=== PATIENT | male | born 1955 | race Caucasian/White ===

== ENCOUNTER 2018-07-15 05:35 | Day surgery (SDC) | payer OTHER, SELFPAY ==
[2018-07-15] VITALS (8 sets, daily range): BP systolic 91–123; BP diastolic 55–81; PULSE 72–75; RESP 16–18; TEMP 36.5–36.7; O2SAT 93–96
--- NOTE | 2018-07-15 06:50 | OP.ENDO_ITS ---
Patient Name: Adiel Miranda Procedure Date: 07/15/2018 6:09 AM Date of : 1955 Age: 63 Procedure: Colonoscopy Indications: Abdominal pain in the left lower quadrant Patient Profile: Last Colonoscopy: July 2012. Providers: Lion Alfaro MD Referring MD: Deanna Winchester Medicines: Midazolam 4.5 mg IV, Meperidine 100 mg IV Complications: No immediate complications. Procedure: Pre-Anesthesia Assessment: - Prior to the procedure, a History and Physical was performed, and patient medications and allergies were reviewed. The patient's tolerance of previous anesthesia was also reviewed. The risks and benefits of the procedure and the sedation options and risks were discussed with the patient. All questions were answered, and informed consent was obtained. Prior Anticoagulants: The patient has taken aspirin, last dose was day of procedure. ASA Grade Assessment: II - A patient with mild systemic disease. After reviewing the risks and benefits, the patient was deemed in satisfactory condition to undergo the procedure. After I obtained informed consent, the scope was passed under direct vision. Throughout the procedure, the patient's blood pressure, pulse, and oxygen saturations were monitored continuously. The colonoscope was introduced through the anus and advanced to the cecum, identified by appendiceal orifice and ileocecal valve. The colonoscopy was performed without difficulty. The patient tolerated the procedure well. The quality of the bowel preparation was good. Scope In: 6:32:21 AM Scope Withdrawal Time 0 hours 6 minutes 12 seconds Scope Out: 6:40:29 AM Total Procedure Duration Time 0 hours 8 minutes 8 seconds Moderate Sedation: Moderate (conscious) sedation was administered by the endoscopy nurse and supervised by the endoscopist. The patient's oxygen saturation, heart rate, blood pressure and response to care were monitored. Total physician intraservice time was 15 minutes. Findings: The digital rectal exam findings include enlarged prostate. Pertinent negatives include normal sphincter tone. Multiple diverticula were found in the entire colon. There was evidence of a prior end-to-end colo-colonic anastomosis in the distal sigmoid colon. This was patent and was characterized by healthy appearing mucosa. The anastomosis was traversed. Impression: - Enlarged prostate found on digital rectal exam. - Diverticulosis in the entire examined colon. - Patent end-to-end colo-colonic anastomosis, characterized by healthy appearing mucosa. - No specimens collected. Recommendation: - Discharge patient to home. - Resume previous diet. - Continue present medications. - Repeat colonoscopy in 10 years for screening purposes. Procedure Code(s): --- Professional --- 97870, Colonoscopy, flexible; diagnostic, including collection of specimen(s) by brushing or washing, when performed (separate procedure) 09037, 59, Moderate sedation services provided by the same physician or other qualified health animal care giver performing the diagnostic or therapeutic service that the sedation supports, requiring the presence of an independent trained observer to assist in the monitoring of the patient's level of consciousness and physiological status; initial 15 minutes of intraservice time, patient age 5 years or older Diagnosis Code(s): --- Professional --- Z98.0, Intestinal bypass and anastomosis status R10.32, Left lower quadrant pain N40.0, Benign prostatic hyperplasia without lower urinary tract symptoms K57.30, Diverticulosis of large intestine without perforation or abscess without bleeding CPT copyright 2017 [employer]. All rights reserved. The codes documented in this report are preliminary and upon email campaign specialist review may be revised to meet current compliance requirements. MD Lion Chang MD 07/15/2018 6:50:16 AM This report has been signed electronically. Number of Addenda: 0 Note Initiated On: 07/15/2018 6:09 AM
== END 2018-07-15 07:30 | disposition home or self-care (01) ==
LOC: EN 05:36 → AC 05:37
PROVIDERS: Family Provider Internal Medicine; PCP Internal Medicine; Visit Provider Surgery
PROC: 0DJD8ZZ Inspection of Lower Intestinal Tract, Via Natural or Artificial Opening Endoscopic (ICD-10-PCS; CPT 45378; principal; 2018-07-15 06:25)
DX: R10.32 Left lower quadrant pain (principal); I72.3 Aneurysm of iliac artery; N40.0 Benign prostatic hyperplasia without lower urinary tract symptoms; K57.30 Diverticulosis of large intestine without perforation or abscess without bleeding; E11.9 Type 2 diabetes mellitus without complications; E78.5 Hyperlipidemia, unspecified; I25.2 Old myocardial infarction; I25.10 Atherosclerotic heart disease of native coronary artery without angina pectoris; I10 Essential (primary) hypertension; I48.0 Paroxysmal atrial fibrillation; I25.5 Ischemic cardiomyopathy; Z79.82 Long term (current) use of aspirin; Z95.5 Presence of coronary angioplasty implant and graft; Z87.891 Personal history of nicotine dependence; Z98.0 Intestinal bypass and anastomosis status
CPT/HCPCS: 45378; 99152; 99153; J7120

== ENCOUNTER → 2018-08-05 07:49 | Outpatient (CLI) | payer OTHER, SELFPAY ==
[2018-08-05 08:53] LABS: Absolute Lymphocyte Count 2.59 X10^3/ul (0.83-4.51); Absolute Neutrophil Count 8.6 X10^3/uL (2.0-7.7); Basophil# 0.04 X10^3/uL; Basophil% 0.3 % (0-1); Eosinophil# 0.09 X10^3/uL; Eosinophils% 0.7 % (0-5); Hematocrit 47.8 % (40-54); Hemoglobin 16.9 g/dl (13.0-16.5); Lymphocyte # 2.59 X10^3/ul (4.0); Lymphocyte % 21.1 % (19-41); Mean Corp Hgb Conc 35.4 g/gl (32-36); Mean Corpuscular Hgb 31.3 pg (27.0-32.0); Mean Corpuscular Volume 88.5 fL (80-94); Monocyte# 0.88 X10^3/uL; Monocyte% 7.2 % (0-10); Neutrophil % 70.3 % (47-70); Platelet Count 356 K/mm3 (150-450); RBC Distribution Width CV 14.3 % (11.6-14.6); RBC Distribution Width SD 46.9 fl (35.1-43.9); White Blood Count 12.3 K/mm3 (4.4-11.0)
[2018-08-05 08:59] LABS: Anion Gap 9 (5-15); BUN 10 mg/dL (7-18); BUN/Creat Ratio 9.2 RATIO (10-20); Calcium,Total 9.2 mg/dL (8.5-10.1); Chloride 100 mmol/L (98-107); Creatinine, Serum 1.09 mg/dL (0.70-1.30); EST Glomerular Filtration Rate 73 mL/min (>60); Est Glom Filt Rate - Afr Amer 88 mL/min (>60); Glucose 119 mg/dL (74-106); Potassium 4.3 mmol/L (3.5-5.1); Sodium Level 131 mmol/L (136-145)
[2018-08-05 09:18] LABS: POSITIVE COUNT NO; POSITIVE DIFFERENTIAL NO; POSITIVE MORPHOLOGY NO
== END ==
PROVIDERS: Family Provider Internal Medicine; PCP Internal Medicine; Referring Provider Clinical Nurse Specialist; Visit Provider Clinical Nurse Specialist
DX: R10.32 Left lower quadrant pain (principal); Z87.19 Personal history of other diseases of the digestive system
CPT/HCPCS: 80048; 85025

== ENCOUNTER 2020-04-03 10:15 | Emergency (ER) | payer OTHER, SELFPAY ==
[2019-09-07 10:11] VITALS: BMI 31.4
[2020-04-03 10:16] VITALS: BP 187/92; PULSE 81; RESP 18; TEMP 36.9; O2SAT 97; BMI 32.4
--- NOTE | 2020-04-03 10:32 | EKG12_ITS ---
Test Reason : CP Blood Pressure : / mmHG Vent. Rate : 077 BPM Atrial Rate : 077 BPM P-R Int : 176 ms QRS Dur : 130 ms QT Int : 384 ms P-R-T Axes : 062 -66 094 degrees QTc Int : 434 ms Sinus rhythm with Premature atrial complexes Left axis deviation Non-specific intra-ventricular conduction block T wave abnormality, consider lateral ischemia Abnormal ECG Confirmed by WYATT ALRA, YARIEL ([id number]), rewrite editor ZEESHAN CHATTERJEE ([id number]) on 04/04/2020 10:01:47 AM Referred By: EMILY Confirmed By:YARIEL SCHNEIDER MD
--- NOTE | 2020-04-03 10:36 | ED.DCSUM_ITS ---
- ER Visit Summary Date of Service: 04/03/20 Chief Complaint: Chest pain History of Present Illness: The patient is a 65 M who presents with chest pain that is been intermittent over the past 2 weeks. Patient states it is been constant since he woke up this morning. Patient describes as a tightness. Rhina ent states it is across his entire chest. Patient states nothing makes it better or worse. Patient admits to some nausea but denies any vomiting. Patient admits to some lightheadedness. Patient denies any shortness of breath or diaphoresis. Patient admits to an occasional cough. Patient denies any palpitations. Patient states this pain is different from the pain he had when he had his HI. Physical Examination: Vital signs are stable. Patient is afebrile. Patient is in no acute distress. Oral mucosa is pink and moist. Neck is supple. Trachea is midline. There is no JVD. Heart was regular rate and rhythm. Lungs are clear and equal bilaterally. Abdomen is soft. Bowel sounds are normal. There is no tenderness. Cranial nerves II through XII are intact. There are no focal motor or sensory deficits. Extremities are intact. There is no calf tenderness or edema. Test Results: EKG showed a normal sinus rhythm with a rate of 77. There is a nonspecific intraventricular conduction delay. There is some T wave inversion in leads I and aVL. These are unchanged compared to previous EKG dated 04/30/2017. CBC, comprehensive metabolic profile and lipase were obtained and were all within normal limits. Troponin was normal. D-dimer was normal. Portable chest x-ray shows mild cardiomegaly. There is no acute cardiopulmonary process. Emergency Department Course and Treatment: Patient was given aspirin and sublingual nitroglycerin here. Patient states his chest pain improved on reevaluation. Patient states he still has some epigastric pain on reevaluation. Patient was given a GI cocktail. Patient states this improved his pain. Patient wants to go home. Patient was instructed to follow-up with his primary care physician in 3 to 5 days. Patient was instructed to return if worse in any way. Patient understood and was agreeable with the plan. All questions were answered. Disposition: Discharge home Impression: Chest pain This note was generated with [employer] dictation software. It may contain incorrect words, spelling, and punctuation that were not noted in review of the chart prior to signing ED Disposition - Plan for ED Patient: Disposition: Home or Assisted Living Diagnosis: Chest pain Instructions: ED Chest Pain Atypical Unkn Cause Referrals: Deanna Winchester MD [Primary Care Provider] - 3-5 Days
[2020-04-03] MEDS: Ondansetron 4 MG/2 ML Vial IV (10:41)
[2020-04-03] MEDS: 0.9% Normal Saline 1,000 ML 1000 ML IV (10:41)
[2020-04-03] MEDS: Aspirin 81 MG TAB.CHEW 324 MG PO (10:43)
[2020-04-03 10:45] LABS: Absolute Lymphocyte Count 2.08 X10^3/uL (0.83-4.51); Absolute Neutrophil Count 9.1 X10^3/uL (2.0-7.7); Basophil# 0.04 X10^3/uL; Basophil% 0.3 % (0-1); Eosinophil# 0.03 X10^3/uL; Eosinophils% 0.3 % (0-5); Hematocrit 48.5 % (40-54); Hemoglobin 16.2 g/dL (13.0-16.5); Lymphocyte # 2.08 X10^3/ul (4.0); Lymphocyte % 17.4 % (19-41); Mean Corp Hgb Conc 33.4 g/dL (32-36); Mean Corpuscular Hgb 31.4 pg (27.0-32.0); Mean Platelet Vol. 8.7 fl (6.2-12.0); Monocyte# 0.63 X10^3/uL; Monocyte% 5.3 % (0-10); NRBC Flagged by Analyzer 0 % (0-5); Neutrophil # 9.12 X10^3/uL (2.7-7.7); Neutrophil % 76.3 % (47-70); Platelet Count 370 K/mm3 (150-450); RBC Distribution Width CV 13.6 % (11.6-14.6); RBC Distribution Width SD 47.1 fl (35.1-43.9); Red Blood Count 5.16 M/mm3 (4.6-6.2)
[2020-04-03 10:47] VITALS: BP 143/86; PULSE 73
[2020-04-03] MEDS: Nitroglycerin SL (ED/IMG/CATH) 0.4 MG TABLET SUBLINGUAL (10:47)
--- NOTE | 2020-04-03 10:50 | RAD_ITS ---
STUDY: X-RAY CHEST REASON FOR EXAM: Male, 65 years old. Cp x cpl weeks. worse this am. feels nauseated. tightness -- HX SD X2 TECHNIQUE: Single AP portable view of the chest. COMPARISON: Comparison is made with prior examination dated April 27, 2017. FINDINGS: EKG electrodes are seen. Questionable 1.3 cm nodule overlying the right first costochondral junction. Hyperinflation. There is no demonstrated pleural abnormality. Sternal cerclage wires and vascular clips are present from a prior sternotomy and coronary artery bypass graft procedure (CABG). Cardiomegaly. Normal mediastinum and thomas. Normal visualized pulmonary arteries. Normal visualized aortic arch and descending thoracic aorta. There are diffuse degenerative changes of the visualized thoracic spine. Chondroid calcification overlying the proximal left humerus. There is no demonstrated abnormality of the visualized soft tissue structures of the upper abdomen. RAD/Chest 1 View (Portable) IMPRESSION: Status post CABG. Mild cardiomegaly. Questionable 1.3 cm nodule overlying the right first costochondral junction. A repeat lordotic view is recommended. Electronically Signed: Yordan Guajardo, at 11:17 EDT , Service support ,
[2020-04-03 10:51] LABS: Prothrombin Time (Protime)PT. 12.4 SECONDS (11.7-14.9)
[2020-04-03 10:52] LABS: Partial Thromboplast Time 26.1 Seconds (24.1-36.2)
[2020-04-03 10:54] LABS: D-Dimer Quantitative (DVT/PE) 0.48 FEU/ug/m (0.27-0.49)
[2020-04-03 10:58] LABS: AST(SGOT) 16 U/L (15-37); Alanine Aminotransfer ALT/SGPT 32 U/L (16-61); Albumin, Serum 3.8 g/dL (3.2-5.0); Alkaline Phosphatase 91 U/L (45-117); Anion Gap 8 (5-15); BUN 12 mg/dL (7-18); BUN/Creat Ratio 10.8 RATIO (10-20); Chloride 102 mmol/L (98-107); Creatinine, Serum 1.11 mg/dL (0.70-1.30); EST Glomerular Filtration Rate 71 mL/min (>60); Est Glom Filt Rate - Afr Amer 86 mL/min (>60); Estimated Creatinine Clearance 75.98 ml/min; Globulin 3.9 g/dL (2.2-4.2); Glucose 166 mg/dL (74-106); Lipase 196 U/L (73-393); Potassium 4.2 mmol/L (3.5-5.1); Protein, Total 7.7 g/dL (6.4-8.2); Sodium Level 134 mmol/L (136-145)
[2020-04-03 11:36] VITALS: BP 133/97; PULSE 69; RESP 16; O2SAT 97
[2020-04-03 12:16] VITALS: BP 151/87; PULSE 64; RESP 17; O2SAT 97
[2020-04-03] MEDS: Mag Hydrox/Al Hydrox/Simeth 30 ML UDC PO (13:08)
== END 2020-04-03 13:47 | disposition home or self-care (01) ==
PROVIDERS: Emergency Provider Emergency Medicine; PCP Internal Medicine
DX: R07.89 Other chest pain (principal); R11.0 Nausea; R42 Dizziness and giddiness; R05 Cough; I49.1 Atrial premature depolarization; I25.2 Old myocardial infarction; E11.9 Type 2 diabetes mellitus without complications; I10 Essential (primary) hypertension; I48.91 Unspecified atrial fibrillation; E78.00 Pure hypercholesterolemia, unspecified; Z95.1 Presence of aortocoronary bypass graft; Z79.82 Long term (current) use of aspirin; Z79.899 Other long term (current) drug therapy; F17.200 Nicotine dependence, unspecified, uncomplicated
CPT/HCPCS: 71045; 80053; 83690; 84484; 85025; 85379; 85610; 85730; 93005; 96361; 96374; 99284; J7030; A4216; J2405

== ENCOUNTER → 2020-04-05 | Outpatient (CLI) | payer OTHER, SELFPAY ==
[2020-04-04 10:18] VITALS: BMI 32.5
== END | disposition home or self-care (01) ==
LOC: LABSPEC 07:56
PROVIDERS: PCP Internal Medicine; Referring Provider Physician Assistant Medical; Visit Provider Physician Assistant Medical
DX: K92.2 Gastrointestinal hemorrhage, unspecified (principal)
CPT/HCPCS: 82274

== ENCOUNTER → 2020-04-19 08:15 | Outpatient (CLI) | payer OTHER, SELFPAY ==
[2020-04-04 10:18] VITALS: BMI 32.5
--- NOTE | 2020-04-19 08:30 | RAD_ITS ---
STUDY: UPPER GI AND SMALL BOWEL FOLLOW-THROUGH REASON FOR EXAM: Male, 65 years old. ABDOMINAL PAIN, NAUSEOUS, CHEST PRESSURE/TIGHTNESS, GAGGING ALL X4 WEEKS -- 84 FLUORO SEC, 30.51mGy, 14 FLUORO IMAGES FLUOROSCOPY TIME (if supplied): ( 1 minute 24 seconds ) TECHNIQUE: 14 fluoroscopic spot films were obtained along with 14 overhead films COMPARISON: No recent studies, CT scan from 2016 FINDINGS: [employer] film demonstrates an unremarkable bowel gas pattern. There are multiple Sitz markers noted over the lower abdomen and upper pelvis. Swallowing was initiated normally. No nasopharyngeal reflux or aspiration. No Zenker''s diverticulum was noted on the lateral view. Normal peristaltic activity noted in the esophagus. There is no evidence of a hiatal hernia there was GE reflux. The stomach shows marked abnormality with enlarged rugal folds and mucosal irregularity in the proximal half of the stomach suggestive of gastritis. There is no demonstrated ulcer or mass lesion. The stomach does distend, so this is not a linitis plastica. However, further evaluation with CT scan or endoscopy is recommended. The distal half of the stomach distends normally with normal mucosal pattern. The duodenal C-loop is not elongated and also demonstrates a normal mucosal pattern. Small bowel follow-through study shows normal distending jejunal and ileal loops. There is no abnormal separation of loops to suspect an acute inflammatory process, there is no submucosal thickening, or evidence of fistula or extravasation contrast outside the lumen of the intestines. Transit time to the terminal ileum was just about 90 minutes which is within normal range. Spot compression films of the terminal ileum do not show any mucosal abnormality. RAD/Upper GI/w Small Bowel IMPRESSION: Marked abnormality in the proximal half the stomach consistent with likely acute on chronic gastritis. There is rugal fold enlargement and diffuse mucosal irregularity recommend further evaluation with CT scan or endoscopy. GE reflux without hiatal hernia Normal esophagus, distal stomach, duodenum and jejunum and ileum Electronically Signed: Michael Obregon MD at 11:33 EDT , Service support ,
== END ==
PROVIDERS: PCP Internal Medicine; Referring Provider Physician Assistant; Visit Provider Physician Assistant
DX: R10.9 Unspecified abdominal pain (principal); R11.0 Nausea
CPT/HCPCS: 74246; 74248

== ENCOUNTER → 2020-05-29 06:26 | Outpatient (CLI) | payer OTHER, SELFPAY ==
[2020-05-16 08:58] VITALS: BMI 31.9
--- NOTE | 2020-05-29 09:58 | STRESSREP_ITS ---
Stress Test Report Exercise myocardial perfusion stress test. 65-year-old man with a history of coronary artery bypass surgery with a left internal mammary artery to the left anterior descending artery which was patent in 2017, saphenous vein graft to the right coronary artery and ramus intermedius which were occluded and the seneca right coronary artery which was occluded. Stress protocol: Resting EKG demonstrates normal sinus rhythm with a rate of 67 bpm. Left axis deviation is noted. Resting blood pressure is 140/78 mmHg. The patient exercised according to regular Louis protocol for a total duration of 6 minutes the maximum heart rate attained was 1 and 36 bpm which was 87% of maximum predicted heart rate the maximum workload was 7 metabolic equivalents. Patient maintained sinus rhythm throughout the recording. At rest there were no ST or T wave changes noted suggest ischemia at peak exercise mild shortness of breath was noted. There were no ST or T wave changes noted to suggest ischemia. The resting blood pressure was 140/78 with a peak blood pressure 190/80 mmHg. No clinical angina was noted the test was terminated due to shortness of breath and leg discomfort. Myocardial perfusion protocol. 14.7 mCi of technetium 99m sestamibi was injected at rest. The patient exercised according to regular Louis protocol for 6 minutes at peak exercise 44.6 mCi of technetium 99m sestamibi was injected stress images were obtained stress and rest images were reconstructed in comparing the short axis vertical long horizontal long axis. Gated images were also obtained Perfusion SPECT analysis: Review of the stress images demonstrate a small defect noted involving the mid anterior lateral wall as well as a medium-sized defect involving the inferior septal wall this extends to the inferior wall as well. On the resting images there was improvement in the inferoseptal and inferior wall suggesting ischemia in this distribution and a small previous anterolateral infarct. Gated SPECT analysis: The gated ejection fraction is 58%. Conclusion: 1. Small previous anterolateral infarct. Medium sized inferior and inferoseptal ischemic zone. Preserved ejection fraction
== END ==
PROVIDERS: PCP Internal Medicine; Referring Provider Physician Assistant Medical; Visit Provider Physician Assistant Medical
DX: R07.9 Chest pain, unspecified (principal); I48.0 Paroxysmal atrial fibrillation; I25.10 Atherosclerotic heart disease of native coronary artery without angina pectoris; I10 Essential (primary) hypertension; I25.119 Atherosclerotic heart disease of native coronary artery with unspecified angina pectoris
CPT/HCPCS: 78452; 93017; A9500; A4216

== ENCOUNTER 2021-01-04 10:32 | Outpatient (RCR) | payer OTHER, SELFPAY ==
[2020-07-07 14:37] VITALS: BMI 33.1
[2021-01-04] MEDS: COVID-19 VACC, MRNA(PFIZER)/PF 30 MCG/0.3 ML SYRINGE IM (08:14)
[2021-01-25] MEDS: COVID-19 VACC, MRNA(PFIZER)/PF 30 MCG/0.3 ML SYRINGE IM (07:59)
== END 2021-04-03 23:59 ==
LOC: IMMUN 10:32
PROVIDERS: PCP Internal Medicine; Referring Provider Family Medicine; Visit Provider Family Medicine
DX: Z23 Encounter for immunization (principal)
CPT/HCPCS: 0001A; 0002A; 91300